=== PATIENT | female | born 1990 | race Two or more races ===

== ENCOUNTER 2025-05-17 21:06 | Inpatient (IN) | payer OTHER ==
[~2025-05-17] VITALS: Ht 167.6 cm; Wt 111.4 kg
[2025-05-17 21:45] VITALS: PULSE 214; RESP 14; O2SAT 95
[2025-05-17] MEDS: SODIUM CHLORIDE 0.9% 1,000 ML IV ONE (21:54)
[2025-05-17] MEDS: ADENOSINE 6 MG/2 ML INJ IV ONE ×2 (21:54→21:56)
[2025-05-17 22:17] LABS: Hematocrit 48.4 % (36.0-46.0); Hemoglobin 16.2 g/dL (12.2-16.2); Mean Corpuscular Hemoglobin 28.9 pg (28.0-32.0); Mean Corpuscular Volume 86.1 fL (80.0-100.0); Nucleated Red Blood Cells % 0.2 %
[2025-05-17 22:20] LABS: Potassium 4.7 mmol/L (3.5-5.1); Sodium 143 mmol/L (136-145)
[2025-05-17 22:21] LABS: Anion Gap 12 (5-15); Carbon Dioxide 22 mmol/L (20-31); Chloride 109 mmol/L (98-107)
--- NOTE | 2025-05-17 22:24 | DVH ---
CHEST RADIOGRAPH Indication: cp Technique: Single frontal view of the chest was obtained Comparison: None FINDINGS: Lines and Tubes: None Lungs: No focal consolidation. Pleura: No effusion. No pneumothorax. Cardiomediastinal contours: Unremarkable Bones: No acute osseous abnormality. IMPRESSION: 1. No acute cardiopulmonary disease.
[2025-05-17 22:26] LABS: BUN/Creatinine Ratio 20.9 (10.0-20.0); Blood Urea Nitrogen 18 mg/dL (9-23)
[2025-05-17 22:27] LABS: Calcium 10.5 mg/dL (8.7-10.4); Glucose 258 mg/dL (74-106); Magnesium 1.9 mg/dL (1.6-2.6)
--- NOTE | 2025-05-17 22:39 | ED.PDOC ---
History of Present Illness HPI Comments 34-year-old female presents with chief complaint of chest pain and palpitations. She endorses on sudden unprovoked onset, this evening, while at rest. No significant medical history or history of symptoms in the past. Only recent event of a headache, earlier, this morning, which subsided after taking ibup rofen then. Denies having any shortness of breath, nausea, vomiting, fever, chills, further associated symptoms. Upon arrival to ED, patient had an oval heart rate in the 200s range alongside a blood pressure of 144/83. Chief Complaint: Palpitations Time Seen by MD: 21:20 Reviewed Notes: Nurses Notes, Medications, Allergies Allergies: Coded Allergies: Tramadol (Verified Allergy, Unknown, 05/17/25) Information Source: Patient Mode of Arrival: Ambulatory Severity: Moderate Timing: Minutes Duration: Since onset Prehospital treatment: None Review of Systems: REVIEW OF SYSTEMS: No fever, no chills, HEENT: No neck pain, no blurred vision Cardiac: Chest pain and palpitations Lungs: No shortness of breath, GI: No abdominal pain, no vomiting Musculoskeletal: No joint pain , no back pain Skin: No rash, no wound Neuro: No headache, no dizziness, no syncope Vital Signs Vital Signs Date Time Temp Pulse Resp B/P (MAP) Pulse Ox O2 Delivery O2 Flow Rate FiO2 05/18/25 00:00 109 05/17/25 23:30 14 135/87 (103) 96 05/17/25 21:45 Room Air* 0 21 05/17/25 21:30 98.4 98.4 Physical Exam General: Awake, alert and oriented. No acute distress. Skin: Skin in warm, dry and intact without rashes or lesions. HEENT: The head is normocephalic and atraumatic. Conjunctivae are clear without exudates or hemorrhage. Sclera is non-icteric. Neck: Normal range of motion. No JVD. Cardiac: Rapid rate but regular rhythm Respiratory: No signs of respiratory distress. No Stridor. Extremities: Upper and lower extremities are atraumatic in appearance without deformity. Neurological: The patient is awake, alert and oriented to person, place, and time with normal speech. Speech is clear. There is no facial asymmetry. Psychiatric: Appropriate mood and affect. Good judgement and insight. 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 Was a procedure done?: No EKG EKG #1: Pulse Rate (adult): 223 [place]: Normal Cardiac Rhythm: PSVT Block: None Hypertrophy: None ST: Normal EKG #2: Pulse Rate (adult): 114 [place]: Normal Cardiac Rhythm: ST Block: None Hypertrophy: None ST: Normal EKG #3: Pulse Rate (adult): 103 [place]: Normal Cardiac Rhythm: ST Block: None Hypertrophy: None ST: Normal Differential Dx Considerations may include: Differential diagnoses considered include acute ischemic coronary syndrome, aortic dissection, cardiac tamponade, mediastinitis, pulmonary embolus, pneumothorax, tension pneumothorax, esophageal rupture, coronary artery vasospasm, myocarditis, pericarditis, pneumonia, pulmonary edema, esophageal tear, pancreatitis, aortic stenosis, dilated cardiomyopathy, hypertrophic cardiomyopathy, mitral valve prolapse, malignancy, pleuritis, pneumomediastinum, primary pulmonary hypertension, cholecystitis, esophageal spasm, esophagus, gastritis, GERD, peptic ulcer disease, costochondritis, fibromyalgia, rib fracture, herpes zoster, radicular syndromes, thoracic outlet syndrome, somatization. X-Ray, Labs, Meds, VS Vital Signs Date Time Temp Pulse Resp B/P (MAP) Pulse Ox O2 Delivery O2 Flow Rate FiO2 05/18/25 00:00 109 05/17/25 23:59 103 05/17/25 23:30 110 14 135/87 (103) 96 05/17/25 22:39 114 05/17/25 22:17 114 05/17/25 21:45 214 14 95 Room Air* 0 21 05/17/25 21:45 117 05/17/25 21:30 98.4 214 14 151/88 (109) 95 98.4 05/17/25 21:17 97.6 215 18 144/83 (103) 96 97.6 05/17/25 21:12 223 Lab Test 05/17/25 23:37 05/17/25 23:07 05/17/25 21:18 Range/Units Triglycerides Level Pending Cholesterol Level Pending LDL Cholesterol Pending HDL Cholesterol Pending Lactic Acid Level 2.2 *H 3.1 *H 0.4-2.0 mmol/L Troponin I High Sensitivity 68 *H 5 </=34 ng/L White Blood Count 12.5 H 4.4-10.8 10^3/uL Red Blood Count 5.62 H 4.0-5.20 10^6/uL Hemoglobin 16.2 12.2-16.2 g/dL Hematocrit 48.4 H 36.0-46.0 % Mean Corpuscular Volume 86.1 80.0-100.0 fL Mean Corpuscular Hemoglobin 28.9 28.0-32.0 pg Mean Corpuscular Hemoglobin Concent 33.6 32.0-36.0 g/dL Red Cell Distribution Width 13.6 11.8-14.3 % Platelet Count 391 140-450 10^3/uL Mean Platelet Volume 9.4 6.9-10.8 fL Neutrophils (%) (Auto) 56.3 37.0-80.0 % Lymphocytes (%) (Auto) 34.7 10.0-50.0 % Monocytes (%) (Auto) 6.5 0.0-12.0 % Eosinophils (%) (Auto) 1.8 0.0-7.0 % Basophils (%) (Auto) 0.7 0.0-2.0 % Neutrophils # (Auto) 7.0 1.6-8.6 10 ^3/uL Lymphocytes # (Auto) 4.3 0.4-5.4 10 ^3/uL Monocytes # (Auto) 0.8 0-1.3 10 ^3/uL Eosinophils # (Auto) 0.2 0-0.8 10 ^3/uL Basophils # (Auto) 0.1 0-0.2 10 ^3/uL Nucleated Red Blood Cells 0.2 % Sodium Level 143 136-145 mmol/L Potassium Level 4.7 3.5-5.1 mmol/L Chloride Level 109 H 98-107 mmol/L Carbon Dioxide Level 22 20-31 mmol/L Anion Gap 12 5-15 Blood Urea Nitrogen 18 9-23 mg/dL Creatinine 0.86 0.550-1.02 mg/dL Glomerular Filtration Rate Calc 90 >90 mL/min BUN/Creatinine Ratio 20.9 H 10.0-20.0 Serum Glucose 258 H 74-106 mg/dL Hemoglobin A1c Pending Calcium Level 10.5 H 8.7-10.4 mg/dL Magnesium Level 1.9 1.6-2.6 mg/dL Current Medications Medications (Trade) Dose Ordered Sig/Susan Route Start Time Stop Time Status Last Admin Sodium Chloride 1,000 ml @ 1,000 mls/hr Q1H ONCE IV 05/17/25 21:30 05/17/25 22:29 DC 05/17/25 21:54 Adenosine (Adenosine) 6 mg ONCE ONCE IV 05/17/25 21:30 05/17/25 21:54 DC 05/17/25 21:56 [place] [id number] Ph: [phone] DIAGNOSTIC IMAGING Diagnostic Imaging Report : [id number] Signed PATIENT: TIFF FERNANDEZ ACCT: [id number] UNIT: [id number] : 1990 LOC: ER ROOM / BED: / AGE / SEX: 34 / F ADM STATUS: REG ER SERVICE 21 ORDERING PHYSICIAN: ABEBA JAMESON MD PROCEDURE(s): CXR1 - CHEST XRAY 1 VIEW REASON: cp ORDER NUMBER(s): [id number], ACCESSION NUMBER(s): [id number] CHEST RADIOGRAPH Indication: cp Technique: Single frontal view of the chest was obtained Comparison: None FINDINGS: Lines and Tubes: None Lungs: No focal consolidation. Pleura: No effusion. No pneumothorax. Cardiomediastinal contours: Unremarkable Bones: No acute osseous abnormality. IMPRESSION: 1. No acute cardiopulmonary disease. ATED BY: MARS AGUIRRE Jr., DO DICTATED DATE/TIME: 05/17/252221 SIGNED BY: MARS AGUIRRE Jr., SIGNED DATE/TIME: 05/17/252221 CC: Time of 1ST Reevaluation: 21:50 Reevaluation 1ST: Improved Patient Education/Counseling: Treatment, Other (Need for admission) Family Education/Counseling: No Family Present SEPSIS Sepsis Screen Date sepsis recognized/suspect: May 17, 2025 Time Sepsis recognized/suspect: 2106 Recent Procedure: No On Antibiotic Therapy: No Respiratory Rate >20: No Heart Rate >90: Yes Temp<36 C (96.8 F) or >38.3 C: No SBP <90 or MAP <65 mmHG: No New Acute Mental Status Change: No Is the patient on CPAP, BIPAP,: No Physician Orders Electrocardigram (05/17/25 21:10) Electrocardigram (05/17/25 22:10) Electrocardigram (05/18/25 00:10) Troponin-I Hs (05/17/25 21:21) Test, Urine (05/17/25 21:21) Drug Screen (05/17/25 21:21) Titrate Oxygen (05/17/25 21:21) Oxygen (05/17/25 ) Continous Pulse Oximetry (05/17/25 21:21) Saline Lock (05/17/25 21:21) Pearl Glue Drier (05/17/25 ) Chest Xray 1 View (05/17/25 21:22) Covid19 Antigen Nohemy (05/18/25 ) Rapid Influenza A&B (05/18/25 00:05) Vital Signs Date Time Temp Pulse Resp B/P (MAP) Pulse Ox O2 Delivery O2 Flow Rate FiO2 05/18/25 00:00 109 05/17/25 23:59 103 05/17/25 23:30 110 14 135/87 (103) 96 05/17/25 22:39 114 05/17/25 22:17 114 05/17/25 21:45 214 14 95 Room Air* 0 21 05/17/25 21:45 117 05/17/25 21:30 98.4 214 14 151/88 (109) 95 98.4 05/17/25 21:17 97.6 215 18 144/83 (103) 96 97.6 05/17/25 21:12 223 Laboratory Tests Test 05/17/25 21:18 05/17/25 23:07 Lactic Acid Level 3.1 mmol/L (0.4-2.0) *H 2.2 mmol/L (0.4-2.0) *H White Blood Count 12.5 10^3/uL (4.4-10.8) H Medications Medications Dose Ordered Sig/Susan Route Start Time Stop Time Status Last Admin Dose Admin Adenosine 6 mg ONCE ONCE IV 05/17/25 21:30 05/17/25 21:54 DC 05/17/25 21:56 Sodium Chloride 1,000 ml @ 1,000 mls/hr Q1H ONCE IV 05/17/25 21:30 05/17/25 22:29 DC 05/17/25 21:54 Departure 1 Departure Time of Disposition: 00:04 Impression: Primary Impression: SVT (supraventricular tachycardia) Additional Impressions: Hyperglycemia Chest pain Elevated troponin Lactic acidemia Disposition: HOME / SELF CARE / HOMELESS Condition: Stable Comments 34-year-old female with new onset SVT with initial rate of 235 and hyperglycemia Patient converted to sinus tachycardia after dose of adenosine 6 mg Case discussed with [place] who authorizes admission at this facility. Auth # [id number] Dr. Parra Extensive evaluation was performed in attempt to identify or rule out: (See differential diagnosis section) The following tests were ordered, and results were reviewed by me and discussed with patient: (See diagnostic results section) The following test were independently interpreted by me: EKG I reviewed and agreed with the following test results read by other providers: Chest x-ray I reviewed the following notes from the pt's past medical encounters: N/A Additional information was gathered from interviewing the following independent historians: N/A Discussion of management or test interpretation with external physician/other qualified health healthcare economics consultant: Dr. Parra Addressed an acute or chronic illness that poses a threat to life or bodily function: Supraventricular tachycardia Decision regarding hospitalization or escalation of hospital level of care: Risk and benefits of admission for further treatment of patient's condition was considered. Due to patient's current clinical condition, high risk of decline and poor outcome if discharged and need for further inpatient management and monitoring, patient will be admitted to the hospital. Drug therapy requiring intensive monitoring for toxicity: IV adenosine Parenteral controlled substances: N/A Decision regarding elective major surgery with identified patient or procedure risk factors: N/A Decision regarding emergency major surgery: N/A Decision not to resuscitate or to de-escalate care because of poor prognosis: N/A Diagnosis or treatment significantly limited by social determinants of health: N/A Critical Care Note Critical Care Time?: Yes (35 min-critical care time only) Critical care comment: Due to a high probability of clinically significant, life threatening deterioration, the patient required my highest level of preparedness to intervene emergently and I personally spent this critical care time directly and personally managing the patient. This critical care time included obtaining a history; examining the patient; pulse oximetry; ordering and review of studies; arranging urgent treatment with development of a management plan; evaluation of patient's response to treatment; frequent reassessment; and, discussions with other providers. This critical care time was performed to assess and manage the high probability of imminent, life-threatening deterioration that could result in multi-organ failure. It was exclusive of separately billable procedures and treating other patients and teaching time. Please see my other sections and the rest of the note for further information on patient assessment and treatment. Stability Stability form required: No Heart Score Heart Score: Heart Score Response (Comments) Value History Highly Suspicious 2 EKG Normal 0 Age >65 2 Risk Factors No known risk factors 0 Troponin 1-2 x's Normal limit 1 Total 5 I personally scribed for ABEBA JAMESON MD ([email or web address]) on 05/17/25 at 22:39. Electronically submitted by Brandyn Ahuja ([email or web address]). I personally scribed for ABEBA JAMESON MD ([email or web address]) on 05/17/25 at 23:12. Electronically submitted by Brandyn Ahuja ([email or web address]). I personally scribed for ABEBA JAMESON MD ([email or web address]) on 05/18/25 at 01:00. Electronically submitted by Brandyn Ahuja ([email or web address]). ABEBA JAMESON MD May 17, 2025 22:39
[2025-05-17 22:43] LABS: Lactic Acid w/Reflex 3.1 mmol/L (0.4-2.0)
--- NOTE | 2025-05-18 00:56 | DVHHP2 ---
History of Present Illness Reason for Visit: Palpitations History of Present Illness 34-year-old female presents for evaluation of palpitations. Patient reports developing palpitations at 8:30 a.m. last night with associated chest pressure that was radiating to her neck. Patient was given adenosine converted to sinus tachycardia in the emergency department. Currently denies chest pain or shortness for breath. Denies any other episodes. Denies any medical problems. Past Medical History Denies Family History Denies Smoke: No ALCOHOL: none Drugs: None Lives: with Family Review of Systems Review of Systems Review of systems are currently negative otherwise addressed in HPI. Allergies: Coded Allergies: Tramadol (Verified Allergy, Unknown, 05/17/25) Exam Vital Signs Vital Signs Date Time Temp Pulse Resp B/P (MAP) Pulse Ox O2 Delivery O2 Flow Rate FiO2 05/17/25 23:59 103 05/17/25 23:30 14 135/87 (103) 96 05/17/25 21:45 Room Air* 0 21 05/17/25 21:30 98.4 98.4 Exam Gen: 34-year-old in mild distress, obese Skin: Warm, dry, normal color and texture, no rash. HEENT: Normocephalic atraumatic, mucous membranes moist and pink. Neck: Cervical and supraclavicular nodes normal without enlargement, trachea is midline, thyroid gland is normal without masses. Pulmonary: Clear to auscultation and percussion bilaterally. Cardiac: Sinus tachycardia Abdomen: Soft, nontender, nondistended, bowel sounds present all 4 quadrants, no guarding, no rigidity, no organomegaly. Extremities: No cyanosis, clubbing, no edema Neuro: Cranial nerves II through XII grossly intact, normal affect and speech, no focal motor deficits. Labs/Xrays ORDERING PHYSICIAN: ABEBA JAMESON MD PROCEDURE(s): CXR1 - CHEST XRAY 1 VIEW REASON: cp ORDER NUMBER(s): [id number], ACCESSION NUMBER(s): [id number] CHEST RADIOGRAPH Indication: cp Technique: Single frontal view of the chest was obtained Comparison: None FINDINGS: Lines and Tubes: None Lungs: No focal consolidation. Pleura: No effusion. No pneumothorax. Cardiomediastinal contours: Unremarkable Bones: No acute osseous abnormality. IMPRESSION: 1. No acute cardiopulmonary disease. Labs Test 05/17/25 23:07 05/17/25 21:18 Range/Units Lactic Acid Level 2.2 *H 0.4-2.0 mmol/L Troponin I High Sensitivity 68 *H </=34 ng/L White Blood Count 12.5 H 4.4-10.8 10^3/uL Red Blood Count 5.62 H 4.0-5.20 10^6/uL Hemoglobin 16.2 12.2-16.2 g/dL Hematocrit 48.4 H 36.0-46.0 % Mean Corpuscular Volume 86.1 80.0-100.0 fL Mean Corpuscular Hemoglobin 28.9 28.0-32.0 pg Mean Corpuscular Hemoglobin Concent 33.6 32.0-36.0 g/dL Red Cell Distribution Width 13.6 11.8-14.3 % Platelet Count 391 140-450 10^3/uL Mean Platelet Volume 9.4 6.9-10.8 fL Neutrophils (%) (Auto) 56.3 37.0-80.0 % Lymphocytes (%) (Auto) 34.7 10.0-50.0 % Monocytes (%) (Auto) 6.5 0.0-12.0 % Eosinophils (%) (Auto) 1.8 0.0-7.0 % Basophils (%) (Auto) 0.7 0.0-2.0 % Neutrophils # (Auto) 7.0 1.6-8.6 10 ^3/uL Lymphocytes # (Auto) 4.3 0.4-5.4 10 ^3/uL Monocytes # (Auto) 0.8 0-1.3 10 ^3/uL Eosinophils # (Auto) 0.2 0-0.8 10 ^3/uL Basophils # (Auto) 0.1 0-0.2 10 ^3/uL Nucleated Red Blood Cells 0.2 % Sodium Level 143 136-145 mmol/L Potassium Level 4.7 3.5-5.1 mmol/L Chloride Level 109 H 98-107 mmol/L Carbon Dioxide Level 22 20-31 mmol/L Anion Gap 12 5-15 Blood Urea Nitrogen 18 9-23 mg/dL Creatinine 0.86 0.550-1.02 mg/dL Glomerular Filtration Rate Calc 90 >90 mL/min BUN/Creatinine Ratio 20.9 H 10.0-20.0 Serum Glucose 258 H 74-106 mg/dL Calcium Level 10.5 H 8.7-10.4 mg/dL Magnesium Level 1.9 1.6-2.6 mg/dL Assessment/Plan Assessment/Plan Assessment SVT Elevated troponin, demand ischemia Hyperglycemia Lactic acidemia Morbid obesity Plan Admit the patient to telemetry to the hospitalist Cardiology consultation Echocardiogram pending Continue treatment per orders Plan discussed with: Patient My Orders Orders - DEON WINCHESTER Procedure Category Date Status Time Aspirin Tablet PHA 05/18/25 Transmitted 10:00 NS PHA 05/18/25 Transmitted 01:00 Thyroid Stimulating LAB 05/18/25 Transmitted Hormone 00:48 Hemoglobin A1c LAB 05/18/25 Transmitted 00:48 Lipid Panel LAB 05/18/25 Transmitted 00:48 * Cardiology Consult CONS 05/18/25 Transmitted 00:48 Urinalysis LAB 05/18/25 Transmitted 00:48 Admit ADMIT 05/18/25 Transmitted 00:48 Ondansetron Hcl PHA 05/18/25 Transmitted (Zofran) 01:00 Cardiac DIET 05/18/25 Transmitted Diet-2gna,Lofat,Lochol Breakfast Echo 2d Mode Cardiac US 05/18/25 Transmitted DOP 00:48 Condition: Fair [facility] 05/18/25 Transmitted 00:48 Acetaminophen Tablet PHA 05/18/25 Transmitted (Tylenol Tablet) 01:00 Bedrest With Bathroom [facility] 05/18/25 Transmitted Privileg 00:48 Nitroglycerin [facility] 05/18/25 Transmitted Sublingual (Ntrostat 01:00 Morphine Sulfate PHA 05/18/25 Transmitted Injection 01:00 Stat Ekg For Chest [facility] 05/18/25 Transmitted Pain 00:48 Notify Md Of Changes [facility] 05/18/25 Transmitted From Base 00:48 Tavern Keeper For [facility] 05/18/25 Transmitted 24 Hours 00:48 Emergency Dysrhythmia [facility] 05/18/25 Transmitted Protocol 00:48 Rhythm Strips Once [facility] 05/18/25 Transmitted Every Shift 00:48 Oxygen By Nasal RT 05/18/25 Transmitted Cannula 00:48 Date of Service: May 18, 2025 Billing Provider: DEON WINCHESTER Common Visit Codes: [id number] INP/OBS CARE (HIGH) DEON WINCHESTER May 18, 2025 00:56
[2025-05-18] MEDS ORDERED: ONDANSETRON HCL 4 MG/2 ML VIAL IV PRN (01:00)
[2025-05-18] MEDS ORDERED: ACETAMINOPHEN 325 MG TAB PO PRN (01:00)
[2025-05-18] MEDS ORDERED: MORPHINE SULFATE INJ 2 MG/ml SYRG IV PRN (01:00)
[2025-05-18] MEDS ORDERED: NITROGLYCERIN 0.4 MG SL TAB SL PRN (01:00)
[2025-05-18] MEDS: SODIUM CHLORIDE 0.9% 500 ML IV ONE (01:33)
[2025-05-18 01:43] LABS: Cholesterol 204 mg/dL (< 200); HDL Cholesterol 47 mg/dL (40-59); Triglycerides 238 mg/dL (< 150)
--- NOTE | 2025-05-18 06:35 | ECG ---
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
--- NOTE | 2025-05-18 06:36 | ECG ---
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
[2025-05-18 07:43] VITALS: PULSE 83; RESP 15; TEMP 98.4; O2SAT 95
[2025-05-18 07:45] LABS: COVID19 ANTIGEN SOFIA FIA NEGATIVE (NEGATIVE)
[2025-05-18 09:04] LABS: Urine Protein, UAD Negative (Negative)
[2025-05-18 09:26] LABS: Amphetamine Screen, Urine Neg (NEGATIVE); Barbiturate Scree,Urine Neg (NEGATIVE); Benzodiazephine Screen, Urine Neg (NEGATIVE); Cannabinoid Screen, Urine Neg (NEGATIVE); Cocaine Screen, Urine Neg (NEGATIVE); Opiate Scree,Urine Neg (NEGATIVE); Phencyclidine Screen, Urine Neg (NEGATIVE)
--- NOTE | 2025-05-18 09:58 | ECG ---
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
--- NOTE | 2025-05-18 10:52 | DVHCONRES ---
Date Seen: May 18, 2025 Resident Creating Document: NYDIA BACON RESDIENT History of Present Illness 34-year-old female with no significant past medical history came to the hospital due to palpitation. Per patient, she was sitting on the couch when she suddenly developed palpitation associated with mild chest discomfort and shortness of breaths. She also reports of inadequate sleep the night prior to the recent episode. She denies fever, cough, or any recent sick contact/chest trauma. She has history of same symptoms around 15 years back which lasted for 5 seconds and had no workup at the time. While patient was admitted, EKGs showed SVT with heart rate at 200s, and was converted to normal sinus rhythm with 2 subsequent dose of adenosine 6 mg. PMHx: No significant PSHx: Right knee surgery and cholecystectomy Family history: Noncontributory Social history: Ex-smoker, denies current smoking, alcohol or any other drug use Home medication: Does not take any medicine Allergic history: Tramadol Patient seen and examined at the bedside. Patient is feeling better since admission does not have any active complaint including shortness of breath, palpitation and chest pain. Allergies: Coded Allergies: Tramadol (Verified Allergy, Unknown, 05/17/25) Current Medications Current Medications Medications (Trade) Dose Ordered Sig/Susan Route PRN Reason Start Time Stop Time Status Last Admin Aspirin 162 mg DAILY PO 05/18/25 10:00 05/18/25 09:42 Ondansetron HCl (Zofran) 4 mg Q4HP PRN IV NAUSEA / VOMITING 05/18/25 01:00 Acetaminophen (Tylenol Tablet) 650 mg Q6HP PRN PO PAIN SCALE 1-3 OR TEMP>100.4 05/18/25 01:00 Nitroglycerin (Ntrostat Sublingual) 0.4 mg Q5MINP PRN SL FOR CHEST PAIN 05/18/25 01:00 Morphine Sulfate 2 mg Q30M PRN IV FOR CHEST PAIN 05/18/25 01:00 Vital Signs Vital Signs Date Time Temp Pulse Resp B/P (MAP) Pulse Ox O2 Delivery O2 Flow Rate FiO2 05/18/25 09:30 80 15 125/71 (89) 97 05/18/25 07:43 98.4 98.4 05/18/25 07:43 Room Air* 0 21 Physical Exam General Appearance: Alert, Oriented X3, Cooperative, No acute distress HEENT: Atraumatic, PERRLA, EOMI, Mucous membrane moist/pink Respiratory: Clear to auscultation, Normal air movement Cardiovascular: Regular rate, Normal S1, Normal S2, No murmurs, no chest wall tenderness Abdominal: Normal bowel sounds, Soft, No tenderness, No hepatospenomegaly, No masses Extremities: No clubbing, No cyanosis, No edema, Normal pulses, No tenderness/swelling Skin: No rashes, No breakdown, No significant lesion Neuro: Normal gait, Normal speech, Strength at 5/5 X4 ext, Normal tone, Sensation intact, Cranial nerves 3-12 NL, Reflexes 2+ Psych/Mental Status: Mental status NL, Mood NL Labs/Diagnostic Data Labs Test 05/18/25 08:54 05/18/25 08:40 05/18/25 06:11 05/18/25 01:09 Range/Units Urine Test Negative Negative Urine Opiates Screen Neg NEGATIVE Urine Fentanyl Screen Neg NEGATIVE Urine Barbiturates Screen Neg NEGATIVE Urine Phencyclidine Screen Neg NEGATIVE Urine Amphetamines Screen Neg NEGATIVE Urine Benzodiazepines Screen Neg NEGATIVE Urine Cocaine Screen Neg NEGATIVE Urine Cannabinoids Screen Neg NEGATIVE Urine Color Light-yellow Yellow Urine Clarity Clear Clear Urine pH 5.5 5.0-9.0 Urine Specific [place] 1.030 1.001-1.035 Urine Protein Negative Negative Urine Ketones Negative Negative Urine Blood Negative Negative /uL Urine Nitrite Negative Negative Urine Bilirubin Negative Negative Urine Urobilinogen Normal Negative mg/dL Urine Leukocyte Esterase Negative Negative /uL Urine RBC 2 0 - 4 /hpf Urine Microscopic WBC 2 0-5 /HPF Urine Squamous Epithelial Cells Few <5 /hpf Urine Bacteria Few H None Seen /hpf Urine Glucose Normal Normal mg/dL Influenza Type A Antigen Negative Negative Influenza Type B Antigen Negative Negative SARS-CoV-2 Antigen (Rapid) Negative NEGATIVE Troponin I High Sensitivity 141 *H </=34 ng/L Thyroid Stimulating Hormone (TSH) 3.26 0.55-4.78 uIU/mL Test 05/17/25 23:37 05/17/25 23:07 05/17/25 21:18 Range/Units Triglycerides Level 238 H < 150 mg/dL Cholesterol Level 204 H < 200 mg/dL LDL Cholesterol 147 H < 100 mg/dL HDL Cholesterol 47 40-59 mg/dL Lactic Acid Level 2.2 *H 0.4-2.0 mmol/L White Blood Count 12.5 H 4.4-10.8 10^3/uL Red Blood Count 5.62 H 4.0-5.20 10^6/uL Hemoglobin 16.2 12.2-16.2 g/dL Hematocrit 48.4 H 36.0-46.0 % Mean Corpuscular Volume 86.1 80.0-100.0 fL Mean Corpuscular Hemoglobin 28.9 28.0-32.0 pg Mean Corpuscular Hemoglobin Concent 33.6 32.0-36.0 g/dL Red Cell Distribution Width 13.6 11.8-14.3 % Platelet Count 391 140-450 10^3/uL Mean Platelet Volume 9.4 6.9-10.8 fL Neutrophils (%) (Auto) 56.3 37.0-80.0 % Lymphocytes (%) (Auto) 34.7 10.0-50.0 % Monocytes (%) (Auto) 6.5 0.0-12.0 % Eosinophils (%) (Auto) 1.8 0.0-7.0 % Basophils (%) (Auto) 0.7 0.0-2.0 % Neutrophils # (Auto) 7.0 1.6-8.6 10 ^3/uL Lymphocytes # (Auto) 4.3 0.4-5.4 10 ^3/uL Monocytes # (Auto) 0.8 0-1.3 10 ^3/uL Eosinophils # (Auto) 0.2 0-0.8 10 ^3/uL Basophils # (Auto) 0.1 0-0.2 10 ^3/uL Nucleated Red Blood Cells 0.2 % Sodium Level 143 136-145 mmol/L Potassium Level 4.7 3.5-5.1 mmol/L Chloride Level 109 H 98-107 mmol/L Carbon Dioxide Level 22 20-31 mmol/L Anion Gap 12 5-15 Blood Urea Nitrogen 18 9-23 mg/dL Creatinine 0.86 0.550-1.02 mg/dL Glomerular Filtration Rate Calc 90 >90 mL/min BUN/Creatinine Ratio 20.9 H 10.0-20.0 Serum Glucose 258 H 74-106 mg/dL Hemoglobin A1c 6.5 H <5.7 % A1C Calcium Level 10.5 H 8.7-10.4 mg/dL Magnesium Level 1.9 1.6-2.6 mg/dL Assessment Palpitation, due to SVT converted to normal sinus rhythm with 2 subsequent dose of adenosine SVT, likely Atrioventricular Randy Reentrant Tachycardia (AVNRT) type, as there is no delta wave, normal SD segment, with no QRS prolongation NSTEMI, likely type 2 due to above Morbid obesity Newly diagnosed diabetes type 2 Dyslipidemia * EKG upon admission showed SVT (narrow complex tachycardia) with a heart rate at 200s * Post conversion EKGs shows normal sinus rhythm with no significant ST or T- wave changes. No delta wave, normal SD segment with no QRS prolongation * Trop I is mildly raised * Chest x-ray shows no intrathoracic abnormalities Plan/recommendation: (Case discussed with Dr. Pace) * Metoprolol tartrate 25 mg b.i.d. * Check echocardiogram * Incontext of normal echocardiogram, no further cardiology workup required at the moment * Discharge plan: Tab. metoprolol succinate 25 mg daily, may follow up with cement sprayer helper in office in case of recurrent SVT * Rest of plan per primary team Thank you for giving us the opportunity to take care of your patient. Please call back if you have any question/concern. Plan discussed with: Patient, Other (RN) NYDIA BACON May 18, 2025 10:51
[2025-05-18] MEDS: METOPROLOL TARTRATE 25 MG TAB PO ONE (11:07)
--- NOTE | 2025-05-18 12:29 | DVHDS2 ---
Discharge Summary Date of Admission May 18, 2025 at 00:48 Date of Discharge: May 18, 2025 Labs/Diagnostic Data: Laboratory Results Test 05/18/25 08:54 05/18/25 08:40 05/18/25 06:11 05/18/25 01:09 Urine Test Negative (Negative) Urine Opiates Screen Neg (NEGATIVE) Urine Fentanyl Screen Neg (NEGATIVE) Urine Barbiturates Screen Neg (NEGATIVE) Urine Phencyclidine Screen Neg (NEGATIVE) Urine Amphetamines Screen Neg (NEGATIVE) Urine Benzodiazepines Screen Neg (NEGATIVE) Urine Cocaine Screen Neg (NEGATIVE) Urine Cannabinoids Screen Neg (NEGATIVE) Urine Color Light-yellow (Yellow) Urine Clarity Clear (Clear) Urine pH 5.5 (5.0-9.0) Urine Specific [place] 1.030 (1.001-1.035) Urine Protein Negative (Negative) Urine Ketones Negative (Negative) Urine Blood Negative /uL (Negative) Urine Nitrite Negative (Negative) Urine Bilirubin Negative (Negative) Urine Urobilinogen Normal mg/dL (Negative) Urine Leukocyte Esterase Negative /uL (Negative) Urine RBC 2 /hpf (0 - 4) Urine Microscopic WBC 2 /HPF (0-5) Urine Squamous Epithelial Cells Few /hpf (<5) Urine Bacteria Few /hpf (None Seen) Urine Glucose Normal mg/dL (Normal) Influenza Type A Antigen Negative (Negative) Influenza Type B Antigen Negative (Negative) SARS-CoV-2 Antigen (Rapid) Negative (NEGATIVE) Troponin I High Sensitivity 141 ng/L (</=34) Thyroid Stimulating Hormone (TSH) 3.26 uIU/mL (0.55-4.78) Test 05/17/25 23:37 05/17/25 23:07 05/17/25 21:18 Triglycerides Level 238 mg/dL (< 150) Cholesterol Level 204 mg/dL (< 200) LDL Cholesterol 147 mg/dL (< 100) HDL Cholesterol 47 mg/dL (40-59) Lactic Acid Level 2.2 mmol/L (0.4-2.0) White Blood Count 12.5 10^3/uL (4.4-10.8) Red Blood Count 5.62 10^6/uL (4.0-5.20) Hemoglobin 16.2 g/dL (12.2-16.2) Hematocrit 48.4 % (36.0-46.0) Mean Corpuscular Volume 86.1 fL (80.0-100.0) Mean Corpuscular Hemoglobin 28.9 pg (28.0-32.0) Mean Corpuscular Hemoglobin Concent 33.6 g/dL (32.0-36.0) Red Cell Distribution Width 13.6 % (11.8-14.3) Platelet Count 391 10^3/uL (140-450) Mean Platelet Volume 9.4 fL (6.9-10.8) Neutrophils (%) (Auto) 56.3 % (37.0-80.0) Lymphocytes (%) (Auto) 34.7 % (10.0-50.0) Monocytes (%) (Auto) 6.5 % (0.0-12.0) Eosinophils (%) (Auto) 1.8 % (0.0-7.0) Basophils (%) (Auto) 0.7 % (0.0-2.0) Neutrophils # (Auto) 7.0 10 ^3/uL (1.6-8.6) Lymphocytes # (Auto) 4.3 10 ^3/uL (0.4-5.4) Monocytes # (Auto) 0.8 10 ^3/uL (0-1.3) Eosinophils # (Auto) 0.2 10 ^3/uL (0-0.8) Basophils # (Auto) 0.1 10 ^3/uL (0-0.2) Nucleated Red Blood Cells 0.2 % Sodium Level 143 mmol/L (136-145) Potassium Level 4.7 mmol/L (3.5-5.1) Chloride Level 109 mmol/L (98-107) Carbon Dioxide Level 22 mmol/L (20-31) Anion Gap 12 (5-15) Blood Urea Nitrogen 18 mg/dL (9-23) Creatinine 0.86 mg/dL (0.550-1.02) Glomerular Filtration Rate Calc 90 mL/min (>90) BUN/Creatinine Ratio 20.9 (10.0-20.0) Serum Glucose 258 mg/dL (74-106) Hemoglobin A1c 6.5 % A1C (<5.7) Calcium Level 10.5 mg/dL (8.7-10.4) Magnesium Level 1.9 mg/dL (1.6-2.6) Other Laboratory Tests 05/17/25 21:18 Brief Hx & Hospital Course: see dictated note Condition at Discharge: Good Final Diagnosis/Problems List svt Discharge Disposition: Home Discharge Instruct/Medications Diet: Cardiac 2g Na,low cholest Activity: No Restrictions, As Tolerated Follow Up/Referral: fu with pcp/cardiology Medications: script to pharmacy Discharge Statement: "Patient was advised to return to the ER or call 911 if any headaches, dizziness, shortness of breath, chest pain, abdominal pain, bleeding, fevers, or worsening of medical condition. Patient was counseled about treatment plan, medications, possible side effects, patientverbalized understanding. All questions were answered to the best of my ability. This discharge took greater then 30 minutes in planning, reviewing documentation, counseling the patient, and discussing with other team members." ASSESSMENT ASSESSMENT Assessment svt Date of Service: May 18, 2025 Billing Provider: DEON WEBER MD Common Visit Codes: 35837-KBI/OBS DISCH DAY >30min DEON WEBER MD May 18, 2025 12:29
[2025-05-18] MEDS ORDERED: METO25TA36 PO (12:31)
--- NOTE | 2025-05-18 12:41 | DVHDS ---
DATE OF DISCHARGE: 05/18/2025 HISTORY OF PRESENT ILLNESS: The patient is a 34-year-old lady who was admitted with history of palpitations with associated chest pressure. HOSPITAL COURSE: The patient was noted to be in SVT. The patient was given adenosine. The patient has since been in sinus rhythm. The patient's heart rate went as high as 220. The patient's troponin levels are mildly elevated. Her TSH was normal. Echocardiogram is currently pending. Hemoglobin A1c is 6.5. The patient's tox screen was negative and chest x-ray was unremarkable. The patient will now be discharged home to be on Toprol XL 25 mg daily and will follow up with her primary and venue coordinator at [place]. FINAL DIAGNOSES: * SVT. * Non-STEMI, likely type 2. * Questionable diabetes/pre-diabetes. * Hyperlipidemia. * Obesity. Time spent on discharge planning, review of plan with the patient and nursing was 37 minutes. MD GORGE Li/ALBERT TID: [id number] RECEIPT: [id number]
[2025-05-18 13:25] VITALS: BP 109/76; PULSE 77; RESP 14; O2SAT 96
[2025-05-18] MEDS ORDERED: METOPROLOL TARTRATE 25 MG TAB PO SCH (22:00)
--- NOTE | 2025-05-19 00:37 | DVHINCON2 ---
Date of service: May 18, 2025 Referring Physician Alan Reason for Consultation SVT History of Present Illness This is a 34-year-old female with no significant past medical history who presented to the ED with c/o chest palpitation. Per patient, she was sitting on the couch when she suddenly developed palpitation associated with mild chest discomfort and shortness of breaths. She also reports of inadequate sleep the night prior to the recent episode. She denies fever, cough, or any recent sick contact/chest trauma. She has history of same symptoms around 15 years back which lasted for 5 seconds and had no workup at the time. While patient was admitted, EKGs showed SVT with heart rate at 200s, and was converted to normal sinus rhythm with 2 subsequent dose of adenosine 6 mg. EKG upon admission showed SVT (narrow complex tachycardia) with a heart rate at 200s. Post conversion EKGs shows normal sinus rhythm with no significant ST or T-wave changes. No delta wave, normal VA segment with no QRS prolongation. Trop I is mildly raised. Chest x-ray shows no intrathoracic abnormalities. Patient was admitted to the hospital. I am asked to consult on this patient. Patient is feeling better since admission does not have any active complaint including shortness of breath, palpitation and chest pain. Allergies: Coded Allergies: Tramadol (Verified Allergy, Unknown, 05/17/25) Home Meds Active Scripts Metoprolol Succinate (Toprol Xl) 25 Mg Tab, 25 MG PO DAILY for 30 Days, #30 TAB 2 Refills Prov:DEON WEBER MD 05/18/25 Current Medications Current Medications Medications (Trade) Dose Ordered Sig/Susan Route PRN Reason Start Time Stop Time Status Last Admin Aspirin 162 mg DAILY PO 05/18/25 10:00 05/18/25 17:11 DC 05/18/25 09:42 Ondansetron HCl (Zofran) 4 mg Q4HP PRN IV NAUSEA / VOMITING 05/18/25 01:00 05/18/25 17:11 DC Acetaminophen (Tylenol Tablet) 650 mg Q6HP PRN PO PAIN SCALE 1-3 OR TEMP>100.4 05/18/25 01:00 05/18/25 17:11 DC Nitroglycerin (Ntrostat Sublingual) 0.4 mg Q5MINP PRN SL FOR CHEST PAIN 05/18/25 01:00 05/18/25 17:11 DC Morphine Sulfate 2 mg Q30M PRN IV FOR CHEST PAIN 05/18/25 01:00 05/18/25 17:11 DC Metoprolol Tartrate (Lopressor Tablet) 25 mg BID PO 05/18/25 22:00 05/18/25 17:11 DC Review of Systems REVIEW OF SYSTEMS: No fever, no chills, HEENT: No neck pain, no blurred vision Cardiac: Chest pain and palpitations Lungs: No shortness of breath, GI: No abdominal pain, no vomiting Musculoskeletal: No joint pain , no back pain Skin: No rash, no wound Neuro: No headache, no dizziness, no syncope Vital Signs Vital Signs Date Time Temp Pulse Resp B/P (MAP) Pulse Ox O2 Delivery O2 Flow Rate FiO2 05/18/25 13:25 77 14 109/69 (82) 96 05/18/25 07:43 98.4 98.4 05/18/25 07:43 Room Air* 0 21 Physical Exam GENERAL: Alert and oriented x 3. No acute distress. EYES: PERRL, EOMI. Anicteric. HENT: Moist mucous membranes. LUNGS: Clear to auscultation bilaterally. CARDIOVASCULAR: Regular rate and rhythm. ABDOMEN: Soft, non-tender and non-distended. EXTREMITIES: No edema. NEUROLOGIC: No focal neurological deficits. SKIN: Warm, dry. Labs/Diagnostic Data Labs Test 05/18/25 08:54 05/18/25 08:40 05/18/25 06:11 05/18/25 01:09 Range/Units Urine Test Negative Negative Urine Opiates Screen Neg NEGATIVE Urine Fentanyl Screen Neg NEGATIVE Urine Barbiturates Screen Neg NEGATIVE Urine Phencyclidine Screen Neg NEGATIVE Urine Amphetamines Screen Neg NEGATIVE Urine Benzodiazepines Screen Neg NEGATIVE Urine Cocaine Screen Neg NEGATIVE Urine Cannabinoids Screen Neg NEGATIVE Urine Color Light-yellow Yellow Urine Clarity Clear Clear Urine pH 5.5 5.0-9.0 Urine Specific [place] 1.030 1.001-1.035 Urine Protein Negative Negative Urine Ketones Negative Negative Urine Blood Negative Negative /uL Urine Nitrite Negative Negative Urine Bilirubin Negative Negative Urine Urobilinogen Normal Negative mg/dL Urine Leukocyte Esterase Negative Negative /uL Urine RBC 2 0 - 4 /hpf Urine Microscopic WBC 2 0-5 /HPF Urine Squamous Epithelial Cells Few <5 /hpf Urine Bacteria Few H None Seen /hpf Urine Glucose Normal Normal mg/dL Influenza Type A Antigen Negative Negative Influenza Type B Antigen Negative Negative SARS-CoV-2 Antigen (Rapid) Negative NEGATIVE Troponin I High Sensitivity 141 *H </=34 ng/L Thyroid Stimulating Hormone (TSH) 3.26 0.55-4.78 uIU/mL Test 05/17/25 23:37 05/17/25 23:07 05/17/25 21:18 Range/Units Triglycerides Level 238 H < 150 mg/dL Cholesterol Level 204 H < 200 mg/dL LDL Cholesterol 147 H < 100 mg/dL HDL Cholesterol 47 40-59 mg/dL Lactic Acid Level 2.2 *H 0.4-2.0 mmol/L White Blood Count 12.5 H 4.4-10.8 10^3/uL Red Blood Count 5.62 H 4.0-5.20 10^6/uL Hemoglobin 16.2 12.2-16.2 g/dL Hematocrit 48.4 H 36.0-46.0 % Mean Corpuscular Volume 86.1 80.0-100.0 fL Mean Corpuscular Hemoglobin 28.9 28.0-32.0 pg Mean Corpuscular Hemoglobin Concent 33.6 32.0-36.0 g/dL Red Cell Distribution Width 13.6 11.8-14.3 % Platelet Count 391 140-450 10^3/uL Mean Platelet Volume 9.4 6.9-10.8 fL Neutrophils (%) (Auto) 56.3 37.0-80.0 % Lymphocytes (%) (Auto) 34.7 10.0-50.0 % Monocytes (%) (Auto) 6.5 0.0-12.0 % Eosinophils (%) (Auto) 1.8 0.0-7.0 % Basophils (%) (Auto) 0.7 0.0-2.0 % Neutrophils # (Auto) 7.0 1.6-8.6 10 ^3/uL Lymphocytes # (Auto) 4.3 0.4-5.4 10 ^3/uL Monocytes # (Auto) 0.8 0-1.3 10 ^3/uL Eosinophils # (Auto) 0.2 0-0.8 10 ^3/uL Basophils # (Auto) 0.1 0-0.2 10 ^3/uL Nucleated Red Blood Cells 0.2 % Sodium Level 143 136-145 mmol/L Potassium Level 4.7 3.5-5.1 mmol/L Chloride Level 109 H 98-107 mmol/L Carbon Dioxide Level 22 20-31 mmol/L Anion Gap 12 5-15 Blood Urea Nitrogen 18 9-23 mg/dL Creatinine 0.86 0.550-1.02 mg/dL Glomerular Filtration Rate Calc 90 >90 mL/min BUN/Creatinine Ratio 20.9 H 10.0-20.0 Serum Glucose 258 H 74-106 mg/dL Hemoglobin A1c 6.5 H <5.7 % A1C Calcium Level 10.5 H 8.7-10.4 mg/dL Magnesium Level 1.9 1.6-2.6 mg/dL Assessment Palpitation, due to SVT converted to normal sinus rhythm with 2 subsequent dose of adenosine. SVT, likely Atrioventricular Randy Reentrant Tachycardia (AVNRT) type, as there is no delta wave, normal VA segment, with no QRS prolongation. NSTEMI, likely type 2 due to above. Morbid obesity. Newly diagnosed diabetes type 2. Dyslipidemia. Plan/Recommendation I agree with your ongoing assessment and care of plan. Patient has been seen by Bolivar Purcell, resident on my behalf. We have discussed the plan with the patient. Telemetry reviewed. Metoprolol tartrate 25 mg b.i.d. Check echocardiogram. Incontext of normal echocardiogram, no further cardiology workup required at the moment. Discharge plan: Tab. metoprolol succinate 25 mg daily, may follow up with bench hand machine in office in case of recurrent SVT. Rest of plan per primary team. Additional plan as per the hospital course. A total of 45 minutes was spent reviewing the patient record, examining the patient, making a diagnostic and therapeutic plan, discussing this plan with medical personnel, following up on diagnostic studies and following the patient for clinical stability excluding any and all procedures. At least 50% of this time was spent in direct, [id number] contact. Plan discussed with: Patient FREIDA AKINS MD May 18, 2025 23:59
--- NOTE | 2025-05-19 20:58 | DVHSR ---
APPROVED REPORT EXAM: Two-dimensional and M-mode echocardiogram with Doppler and color Doppler. Blood Pressure: 116/75 mmHg INDICATION SVT RISK FACTORS Obesity: Height: 5'6, Weight: 245 DIMENSIONS LVDd4.0 (3.8-5.7cm)LA (2D)4.1 (1.9-4.0cm)Aortic Root3.2 (2.0-3.7cm) LVDs2.9 (2.5-4.0cm)LA (MM) (1.9-4.0cm)Aortic Cusp Exc1.8 (1.5-2.0cm) EF (%) 55.0 (55-70%)Rt. Atrium4.1 (1.9-4.0cm)Asc. Aorta cm IVSd1.1 (0.7-1.1cm)RV (D)4.2 (1.8-2.4cm) PWd0.8 (0.7-1.1cm) Mitral Valve MitralMitral Stenosis E wave0.89m/sMV Mean GR.mmHg A wave0.69m/sMV Peak GR.mmHg E/A ratio1.32D MVAcm2 DECEL [id number] 1/2 Timems Aortic Valve Aortic ValveAortic Stenosis V11.23m/Chen Mean GR.4mmHg V21.35m/Chen Peak GR.7mmHg LVOT Diameter2.5 (1.8-2.4cm)Doppler AVA4.47cm2 Pulmonic Valve V21.09m/s Conclusion LV EF IS 65% AND IS NORMAL NORMAL VALVES NORMAL RV FUNCTION NO EFFUSION
== END 2025-05-18 13:41 | disposition home or self-care (01) | DRG 281 ==
LOC: ER 21:06 → OVERFLOW 05-18 00:48
PROVIDERS: ADMIT Internal Medicine; ATTEND Internal Medicine
DX: I47.19 Other supraventricular tachycardia (principal); E87.20 Acidosis, unspecified; I21.A1 Myocardial infarction type 2; E66.01 Morbid (severe) obesity due to excess calories; E11.65 Type 2 diabetes mellitus with hyperglycemia; Z68.39 Body mass index [BMI] 39.0-39.9, adult; E78.5 Hyperlipidemia, unspecified; Z20.822 Contact with and (suspected) exposure to COVID-19; Z79.899 Other long term (current) drug therapy; Z90.49 Acquired absence of other specified parts of digestive tract; Z88.8 Allergy status to other drugs, medicaments and biological substances
CPT/HCPCS: 36415; 71045; 80048; 80061; 80307; 81001; 81025; 83036; 83605; 83735; 84443; 84484; 85025; 87426; 87804; 93005; 93306; 96361; 96374; 99291; G0378; J0153